=== PATIENT | male | born 1975 | race Caucasian/White ===

== ENCOUNTER 2019-12-28 01:49 | Emergency (ER) | payer BC ==
[~2019-12-28] VITALS: Ht 177.8 cm; Wt 93.6 kg
[~2019-12-28 01:49] MED LIST: COREG6.25 MG PO; EFFEXOR75 MG; FORMULA E400 UNIT PO; NORVASC5 MG PO; PRINIVIL10 MG PO; ZEBETA10 MG PO
[2019-12-28 01:52] VITALS: BP 148/107; Ht 177.8 cm; Wt 93.6 kg
[2019-12-28 02:43] LABS: BASOPHILS 0.2 % (0-2); CALC OSMOLALITY 277 mosm/kg (275-300); CALCIUM 8.4 mg/dL (8.5-10.1); CARBON DIOXIDE 22.8 mmol/L (21.0-32.0); CHLORIDE - SERUM 98 mmol/L (98-107); EOSINOPHILS 0 % (0-7); GLUCOSE 127 mg/dL (74-106); HEMATOCRIT 50.3 % (42.0-54.0); HEMOGLOBIN 17.4 g/dL (13.5-17.5); IMMATURE GRANULOCYTES 0.2 % (0-5); LYMPHOCYTES 22.9 % (15-50); MCH 33.3 pg (26.0-34.0); MCHC 34.6 g/dL (31.0-37.0); MCV 96.4 fL (80.0-100.0); MEAN PLATELET VOLUME 9.3 fL (7.4-10.4); MONOCYTES 9.4 % (2-11); NEUTROPHILS 67.3 % (40-80); PLATELET COUNT 271 10x3/uL (130-400); POTASSIUM - SERUM 3.3 mmol/L (3.5-5.1); RBC 5.22 10x6/uL (4.20-6.10); RDW 12.8 % (11.5-14.5); SODIUM 139 mmol/L (136-145); UREA NITROGEN 6 mg/dL (7-18); WBC 5.1 10x3/uL (4.8-10.8); eGFR NON AFRICAN AMERICAN 85 mL/min (90-120)
[2019-12-28 02:49] LABS: ALBUMIN 4.3 g/dL (3.4-5.0); ALKALINE PHOSPHATASE 92 U/L (30-120); ALT (SGPT) 166 U/L (10-68); BILIRUBIN - TOTAL 0.86 mg/dL (0.2-1.3); MAGNESIUM - SERUM 1.6 mg/dL (1.8-2.4); PROTEIN - SERUM 8.5 g/dL (6.4-8.2)
[2019-12-28 03:11] LABS: BILIRUBIN NEGATIVE (NEGATIVE); KETONE LARGE mg/dL (NEGATIVE); NITRITE NEGATIVE (NEGATIVE); UROBILINOGEN NORMAL mg/dL (< 2)
[2019-12-28 03:15] LABS: BACTERIA FEW HPF (NONE SEEN); EPITHELIAL CELLS 0-5 /hpf (0-5); WHITE CELLS - URINE 0-5 HPF (0-1)
[2019-12-28 03:17] LABS: UDS - AMPHET NEGATIVE QUAL (NEGATIVE); UDS - BARB NEGATIVE QUAL (NEGATIVE); UDS - BENZO NEGATIVE QUAL (NEGATIVE); UDS - COCAINE NEGATIVE QUAL (NEGATIVE); UDS - OPIATE NEGATIVE QUAL (NEGATIVE); UDS - PCP NEGATIVE QUAL (NEGATIVE); UDS - THC POSITIVE QUAL (NEGATIVE)
--- NOTE | 2019-12-28 14:12 | NUR ---
Dr. grande notified and reviewed pt's behavior and assessment results. Pt is a low risk per Dr. grande stated to give resources to pt at time of discharge. No further orders at this time. Resources reviewed with pt and he verbalized understanding. Pt denies si at this time. Pt reports" I am a little depressed, but I am seeing Dr. Melgar for treatment at this time.
== END 2019-12-28 18:54 | disposition home or self-care (01) ==
LOC: D.ER 01:49
PROVIDERS: Family Medicine
DX: S01.01XA Laceration without foreign body of scalp, initial encounter (principal); S09.90XA Unspecified injury of head, initial encounter; F10.129 Alcohol abuse with intoxication, unspecified; Y90.8 Blood alcohol level of 240 mg/100 ml or more; I10 Essential (primary) hypertension